=== PATIENT | female | born 1995 | race Caucasian/White ===

== ENCOUNTER 2017-04-28 19:27 | Emergency (ER) | payer SELFPAY ==
--- NOTE | 2017-04-28 22:00 | ER Document Report ---
ED General - General Chief Complaint: Decreased LOC Stated Complaint: SYNCOPE Time Seen by Provider: 04/28/17 20:22 Notes: Patient is a 21-year-old female without past medical history who presents after having a syncopal episode while at work. Patient states that she began to feel lightheaded, diaphoretic and nauseated. She states that she sat down in a chair and eventually lost consciousness. She did not sustain any trauma during today's episode of syncope. She notes that she has had similar episodes of syncope in the past when she has gone for prolonged periods without eating and her job "does not let her know" eat while at work. She feels that this may have been the cause of her syncope today. She notes that her symptoms have resolved spontaneously. She denies any symptoms at time of my assessment. She denies any chest pain, shortness of breath or headache either before or after the episode of syncope. Past Medical History - General Information source: Patient, Relative - Social History Smoking Status: Never Smoker Frequency of alcohol use: None Drug Abuse: None Lives with: Family Family History: Reviewed & Not Pertinent Review of Systems - Review of Systems Notes: Constitutional: Negative for fever. HENT: Negative for sore throat. Eyes: Negative for visual changes. Cardiovascular: Negative for chest pain. Respiratory: Negative for shortness of breath. Gastrointestinal: Negative for abdominal pain, vomiting or diarrhea. Genitourinary: Negative for dysuria. Musculoskeletal: Negative for back pain. Skin: Negative for rash. Neurological: Negative for headaches, weakness or numbness. 10 point ROS negative except as marked above and in HPI. Physical Exam - Vital signs Vitals: Resp Pulse Ox 14 100 04/28/17 19:56 04/28/17 19:56 Interpretation: Normal Notes: PHYSICAL EXAMINATION: GENERAL: Well-appearing, well-nourished and in no acute distress. HEAD: Atraumatic, normocephalic. EYES: Pupils equal round and reactive to light, extraocular movements intact, sclera anicteric, conjunctiva are normal. ENT: nares patent, oropharynx clear without exudates. Moist mucous membranes. NECK: Normal range of motion, supple without lymphadenopathy LUNGS: Breath sounds clear to auscultation bilaterally and equal. No wheezes rales or rhonchi. HEART: Regular rate and rhythm without murmurs ABDOMEN: Soft, nontender, normoactive bowel sounds. No guarding, no rebound. No masses appreciated. EXTREMITIES: Normal range of motion, no pitting or edema. No cyanosis. NEUROLOGICAL: No focal neurological deficits. Moves all extremities spontaneously and on command. PSYCH: Normal mood, normal affect. SKIN: Warm, Dry, normal turgor, no rashes or lesions noted. Course - Re-evaluation Re-evalutation: 04/28/17 21:59 Presentation of syncope of unclear etiology. Patient normotensive, alert, without focal neurologic deficits at time of arrival. Denies syncope was during exertion. No preceding symptoms of palpitations, chest pain, or shortness of breath. Patient asymptomatic at time of arrival. EKG is without evidence of HCOM , right heart strain, ST changes to suggest ischemia, prolong QTc, delta wave, epsilon wave, or Brugada syndrome. Patient denies any family history of sudden cardiac , personal history of of structural heart disease. Patient denies any symptoms to suggest an acute PE, MD, TAD, SAH, seizure, or acute GI bleed as the etiology of their syncope today. On exam, no murmurs to suggest critical aortic stenosis as possible etiology. Based on overall clinical history, exam findings, vitals, and patients appearance, I feel it is safe for patient to be discharged home at this time with close outpatient follow-up and strict return precautions. Patient is in agreement with this plan, has verbalized indications for return to ED, and questions have been answered. - Vital Signs Vital signs: Temp Pulse Resp BP Pulse Ox 98 F 16 108/80 97 04/28/17 20:15 04/28/17 22:01 04/28/17 22:00 04/28/17 22:01 - EKG Interpretation by Me Additional EKG results interpreted by me: 04/28/17 21:59 Normal sinus rhythm. Rate 78. No ST elevations or depressions. QTC is 411. Discharge - Discharge Clinical Impression: Syncope Qualifiers: Syncope type: unspecified Qualified Code(s): R55 - Syncope and collapse Condition: Good Disposition: HOME, SELF-CARE Additional Instructions: You were seen today after an episode of passing out. Your EKG here is normal. At this time, we do not feel that your episode of passing out was from any life- threatening cause. Please drink plenty of fluids over the next several days. Return to emergency department if you have any further episodes of syncope, headache, weakness, numbness, chest pain, or shortness of breath. Please follow up closely with your primary care physician. Forms: Special Work Note
[2017-04-28 22:15] VITALS: BP 108/80
--- NOTE | 2017-04-28 22:32 | EKG REPORT ---
SEVERITY:- NORMAL ECG - SINUS RHYTHM : Confirmed by: Lucille Reyna 28-Apr-2017 22:31:34
== END 2017-04-28 22:40 | disposition home or self-care (01) ==
LOC: ER 19:27
DX: R55 Syncope and collapse (principal)
CPT/HCPCS: 81025; 93005; 93010; 99284